=== PATIENT | female | born 1975 ===

== ENCOUNTER 2018-08-10 14:35 | Emergency (ER) | payer SELFPAY ==
[~2018-08-10] VITALS: Ht 172.7 cm; Wt 83.9 kg
[2018-08-10 14:46] VITALS: BP 129/090; Ht 172.7 cm; Wt 83.9 kg
== END 2018-08-10 16:06 | disposition left against medical advice (07) ==
LOC: D.ER 14:35
DX: R41.82 Altered mental status, unspecified (principal)